=== PATIENT | male | born 1945 | race Caucasian/White ===

== ENCOUNTER 2018-11-25 15:46 | Inpatient (IN) ==
[2018-11-25] MEDS ORDERED: Morphine Sulfate Inj 2 MG/ML Vial IV.PUSH ONE (16:09)
--- NOTE | 2018-11-25 16:19 | ED ---
HPI General Chief complaint: Extremity Problem,Nontraumatic Stated complaint: hand swollen Time Seen by Provider: 11/25/18 16:05 Source: patient Mode of arrival: ambulatory Limitations: no limitations History of Present Illness HPI Narrative: Right second digit edema/erythema over the last couple days, works with his hands metal/wood Doxycycline with no resolution Complaint: Reports extremity pain and extremity swelling Onset (ago): day(s) Pain Consistency: constant Location: Reports right and upper extremity Quality: Reports aching and dull Radiation: Reports none Relieving factors: nothing Exacerbating factors: range of motion Associated symptoms: Reports denies other symptoms; Denies shortness of breath and fever Context: Denies recent surgery/procedure and history of peripheral vascular disease Related Data Home Medications Medication Instructions Recorded Confirmed allopurinol 100 mg PO BID 11/25/18 11/25/18 aspirin [Aspir-81] 81 mg PO DAILY 11/25/18 11/25/18 Allergies Allergy/AdvReac Type Severity Reaction Status Date / Time No Known Allergies Allergy Verified 11/25/18 16:09 Review of Systems ROS: all other systems reviewed are negative [facility] Medical History Medical History ACL tear (Acute) Gout (Acute) High cholesterol (Acute) Surgical History Surgical History Hx of cholecystectomy (Acute) Social History Social History Substance History: No History of Abuse Smoking Status: Never smoker How Often Do You Have a Drink Containing Alcohol: Never Recent Travel in [facility] within the Last 8 Weeks: No Recent Out of Country Travel within the Last 8 Weeks: No Exam Narrative Exam Narrative: NONTOXIC EOMI NO JVD NON LABORED RESPIRATIONS REGULAR RHYTHM, radial pulse equal [id number] Right second digit MCP to DIP erythema with moderate edema no crepitus Tender with extension Digit extended Nontender along tendon sheath Normal M/S r/u/m Nails intact without cuticle disruption Small punctate area second digit palm proximal to the DIP where there was a drainage by prior physician FACIAL SYMMETRY STEADY GAIT, CLEAR SENTENCES AAOX3 Course Reevaluation(s) Reevaluation #1: d/w hollis acosta will assess in ed 1700 hollis acosta hand ortho , seen pt requested mri hand and admit to hospitialist Thinks gout we will add colchicine 1745 d/w joshua acosta to admit/assume care No signs of tenosynovitis or gangrene Pending MRI Time: 16:46 Initial Documented Vital Signs Temperature 97.3 F L 11/25/18 15:50 Pulse Rate 80 11/25/18 15:50 Respiratory Rate 18 11/25/18 15:50 Blood Pressure 161/93 H 11/25/18 15:50 Pulse Oximetry 99 11/25/18 15:50 Last Documented Vital Signs Temperature 97.3 F L 11/25/18 15:50 Pulse Rate 63 11/25/18 17:45 Respiratory Rate 18 11/25/18 17:45 Blood Pressure 148/83 H 11/25/18 17:45 Pulse Oximetry 97 11/25/18 17:45 Medical Decision Making MDM Narrative Medical Screen Exam Complete: Yes Emergency Medical Condition: Yes Lab Data Result diagrams: 11/25/18 17:00 11/25/18 17:00 Lab Results 11/25/18 11/25/18 Range/Units 17:00 17:00 WBC 7.1 (4.0-11.0) th/mm3 RBC 4.85 (4.50-5.90) mil/mm3 Hgb 17.1 H (13.0-17.0) gm/dL Hct 48.1 (39.0-51.0) % MCV 99.1 (80.0-100.0) fL MCH 35.3 H (27.0-34.0) pg MCHC 35.6 (32.0-36.0) % RDW 12.6 (11.6-17.2) % Plt Count 188 (150-450) th/mm3 MPV 8.5 (7.0-11.0) fL Neut % (Auto) 59.5 (16.0-70.0) % Lymph % (Auto) 26.0 (9.0-44.0) % [place] % (Auto) 8.6 H (0.0-8.0) % Eos % (Auto) 5.2 H (0.0-4.0) % Baso % (Auto) 0.7 (0.0-2.0) % Neut # (Auto) 4.2 (1.8-7.7) th/mm3 Lymph # (Auto) 1.8 (1.0-4.8) th/mm3 [place] # (Auto) 0.6 (0.0-0.9) th/mm3 Eos # (Auto) 0.4 (0.0-0.4) th/mm3 Baso # (Auto) 0.1 (0.0-0.2) th/mm3 WBC Differential . Differential Comment Auto diff final PT 10.2 (9.8-11.6) sec INR 1.0 Ratio APTT 27.9 (23.4-31.7) sec Imaging Data Radiologist's impression: Hand X-Ray 11/25/18 16:09 CONCLUSION: 1. Osteoarthritic changes greatest involving the second distal interphalangeal joint with large osteophytes. 2. Soft tissue swelling over the second digit with benign small calcification. 3. No definite destructive change is identified. Discharge Plan Discharge Disposition Patient Disposition: Against Medical Advice Discharge Condition Condition: Stable Discharge Order Discharge Orders: ED Use Only Admit Order (Routine); Ordered 11/25/18 Ordered By: Kaleb Osorio Discharge Details Diagnosis: Cellulitis and abscess of unspecified digit Physicians Team ED Provider: Kaleb Osorio Primary Care Provider: UNKNOWN, Rxs /Orders / Referrals /Forms Prescriptions: No Action allopurinol 100 mg Tablet 100 mg PO BID RF: 0 aspirin [Aspir-81] 81 mg Tablet,Delayed Release (Dr/Ec) 81 mg PO DAILY RF: 0 Discharge Interventions Interventions: Vital Signs Last Done: 11/25/18 17:45 Status ED Status: Pending Admission
--- NOTE | 2018-11-25 16:44 | XR ---
EXAM DATE: 11/25/2018 4:40 PM EST AGE/SEX: 73 years / Male INDICATIONS: Pain, swelling and redness right hand, 2nd finger, with drainage spot anterior distal 2 nd finger. Denies injury CLINICAL DATA: This is the patient's initial encounter. Patient reports that signs and symptoms have been present for 4 - 6 days and indicates a pain score of 8/10. MEDICAL/SURGICAL HISTORY: Arthritis. None. COMPARISON: No prior exams available for comparison. FINDINGS: AP, lateral and oblique views of the hand were obtained and demonstrate normal mineralization and ali gnment. There are degenerative changes involving the distal interphalangeal joints with joint space l oss and mild hypertrophic change. This is greatest involving the second distal interphalangeal joint with large osteophyte formation. There is diffuse soft tissue swelling. There is a small calcificatio n measuring approximately 2 mm. There is no destructive change. Degenerative changes also noted in th e first metacarpal phalangeal joint with joint space loss and mild sclerosis. CONCLUSION: 1. Osteoarthritic changes greatest involving the second distal interphalangeal joint with large oste ophytes. 2. Soft tissue swelling over the second digit with benign small calcification. 3. No definite destructive change is identified. Electronically signed by: Vito Ivy MD Board Certified Radiologist 11/25/2018 4:42 PM EST
[2018-11-25] MEDS ORDERED: Vancomycin Inj 1,000 MG in Sodium Chlor 0.9% Inj 250 ML IV.SIG SCH (17:00)
[2018-11-25 17:21] LABS: Baso # (Auto) 0.1 th/mm3 (0.0-0.2); Baso % (Auto) 0.7 % (0.0-2.0); Eos # (Auto) 0.4 th/mm3 (0.0-0.4); Eos % (Auto) 5.2 % (0.0-4.0); Hematocrit 48.1 % (39.0-51.0); Hemoglobin 17.1 gm/dL (13.0-17.0); Lymph # (Auto) 1.8 th/mm3 (1.0-4.8); Mean Corpuscular HGB Conc 35.6 % (32.0-36.0); Mean Corpuscular Hemoglobin 35.3 pg (27.0-34.0); Mean Corpuscular Volume 99.1 fL (80.0-100.0); Mean Platelet Volume 8.5 fL (7.0-11.0); Mono # (Auto) 0.6 th/mm3 (0.0-0.9); Mono % (Auto) 8.6 % (0.0-8.0); Neut # (Auto) 4.2 th/mm3 (1.8-7.7); Neut % (Auto) 59.5 % (16.0-70.0); Platelet Count 188 th/mm3 (150-450); Red Blood Count 4.85 mil/mm3 (4.50-5.90); Red Cell Distribution Width 12.6 % (11.6-17.2); White Blood Count 7.1 th/mm3 (4.0-11.0)
[2018-11-25 17:26] LABS: Activated Partial Thrombo Time 27.9 sec (23.4-31.7); Prothrombin Time 10.2 sec (9.8-11.6)
[2018-11-25] MEDS ORDERED: Bisacodyl 10 MG Supp RECTAL PRN (17:51)
[2018-11-25] MEDS ORDERED: Temazepam 15 MG Capsule PO PRN (17:51)
[2018-11-25] MEDS ORDERED: Ketorolac Inj 30 MG/ML (IVP) Vial IV.PUSH PRN (17:51)
[2018-11-25] MEDS ORDERED: Acetaminophen 325 MG Tablet PO PRN (17:51)
--- NOTE | 2018-11-25 17:52 | MB ---
cc: Yasir Kay MD DATE: 11/25/2018 REASON FOR CONSULTATION: Right index finger pain and swelling, likely infection. HISTORY OF PRESENT ILLNESS: The patient is a 73-year-old right-hand dominant male, presenting to the ED with complaints of worsening pain, swelling, and redness involving the right index finger for the past couple of days. The patient states he noticed redness and swelling of the right index finger about a week ago. The patient was seen at urgent care, and he was put on p.o. antibiotics. The patient was seen again today for worsening symptoms, and he was referred to the ER for worsening symptoms. The patient complains of pain, swelling and redness. The patient also states he had a drainage of chalky white material from the region. The patient gives a history of gout. Denies any fever. Denies any numbness. The patient complains of pain with range of motion of the finger. Gives history of gouty attack in the great toe, not in the fingers in the past. PAST MEDICAL AND SURGICAL HISTORY: Reviewed and significant for gout. PHYSICAL EXAMINATION: Examination of the right hand/index finger reveals diffuse swelling of the index finger with erythema. There are 2 punctate areas in the volar aspect distal to the DIP joint crease with chalky white material in the region. Some swelling and erythema and also noted over the dorsal aspect of the DIP joint. Tenderness noted over the pulp region as well as dorsal aspect of the DIP and lateral aspect of the PIP joint. He has intact sensation distally. He has intact distal circulation. No fluctuant mass noted. Making a fist, terminal degrees of flexion and extension of the fingers are limited and painful. No tenderness noted in the palm corresponding to the flexor tendon sheath. He has intact capillary refill. LABORATORY DATA: His lab work is pending. X-rays of the right hand shows arthritis involving multiple DIP joints, worse involving the index finger. There is also evidence of soft tissue calcification on the soft tissues around the DIP joint of the index finger. ASSESSMENT: This is a 73-year-old male with right index finger pain and swelling with erythema. PLAN: My differential diagnosis is gout versus infection. 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 X-ray shows evidence of soft tissue calcification with arthritis. Plan will be to get an MRI scan of the right hand. We will treat the patient with IV antibiotics and anti-inflammatory medications. We will keep the patient n.p.o. for now. Hand surgery will follow. Yasir Kay MD SE/kylah , 05:09 PM , 05:20 PM
[2018-11-25 17:55] LABS: Calcium 8.7 mg/dL (8.5-10.1); Carbon Dioxide 26.9 meq/L (21.0-32.0)
[2018-11-25 17:56] LABS: Potassium 4.2 meq/L (3.5-5.1)
[2018-11-25] MEDS ORDERED: Heparin - SQ 10,000 UNITS/ML Vial SQ SCH (18:00)
--- NOTE | 2018-11-25 19:02 | P.HPIM ---
History of Present Illness Service: [facility] Primary Care Physician: UNKNOWN Chief Complaint: Right index finger infection History of Present Illness: 73-year-old male with a medical history significant for gout presented to the hospital with concern for right index finger infection. He has been swollen and erythematous for the past couple of weeks. It started to drain some white substance. He was seen at an urgent care and was put on oral antibiotics. However his symptoms continue to worsen. He denies fevers or chills. He does have some pain with movement of the finger. Patient was seen in the emergency room by surgery with concern for an infectious process versus gout. The patient will be admitted for IV antibiotics and further workup with MRI. Inpatient Certification Inpatient Certification: I certify that the inpatient services were ordered in accordance with Medicare regulations governing the order. This includes certification that hospital inpatient services are reasonable and necessary and in the case of services not specified as inpatient-only under 42 CFR 419.22(n), that they are appropriately provided as inpatient services in accordance to with the 2-midnight benchmark under 43 CFR 412.3(e) Estimated Total Length of Stay (Days): 3 Plans for Post Hospital Care: Home Review of Systems Review of Systems: all other systems reviewed are negative [facility] Medical History Medical History ACL tear (Acute) Gout (Acute) High cholesterol (Acute) Surgical History Surgical History Hx of cholecystectomy (Acute) Family History Family History Other Family history non-contributory Social History Social History Substance History: No History of Abuse Smoking Status: Never smoker How Often Do You Have a Drink Containing Alcohol: Never Recent Travel in [place] within the Last 8 Weeks: No Recent Out of Country Travel within the Last 8 Weeks: No Immunization History Tetanus Immunization: <5 Years Medications and Allergies Allergies Allergy/AdvReac Type Severity Reaction Status Date / Time No Known Allergies Allergy Verified 11/25/18 16:09 Home Medications Medication Instructions Recorded Confirmed Type allopurinol 100 mg PO BID 11/25/18 11/25/18 History aspirin [Aspir-81] 81 mg PO DAILY 11/25/18 11/25/18 History Active Medications: Active Medications Acetaminophen (Tylenol) 650 mg PO Q4H PRN PRN Reason: Temp > 100.4 Hydrocodone Bitart/Acetaminophen ([place] 7.5/325) 1 tab PO Q6H PRN PRN Reason: PAIN SCALE 6 TO 10 Al Hydroxide/Mg Hydroxide (Milk Of Magnesia Liq) 30 ml PO Q12H PRN PRN Reason: Mild Constipation Allopurinol (Zyloprim) 100 mg PO BID [facility] Aspirin (Ecotrin) 81 mg PO DAILY [facility] Bisacodyl (Dulcolax Supp) 10 mg RECTAL DAILY PRN PRN Reason: SEVERE CONSITIPATION Heparin Sodium (Porcine) (Heparin Inj) 5,000 units SQ Q12H [facility] Vancomycin HCl 1,000 mg/ (Sodium Chloride) 250 mls @ 250 mls/hr IV.SIG FRONT DESK COORDINATOR [facility] Last Admin: 11/25/18 16:50 Dose: 200 mls/hr Ketorolac Tromethamine (Toradol Inj) 15 mg IV.PUSH Q6H PRN PRN Reason: BREAKTHROUGH PAIN Stop: 11/30/18 17:50 Lactulose (Lactulose Liq) 30 ml PO DAILY PRN PRN Reason: SEVERE CONSITIPATION Ondansetron HCl (Zofran Inj) 4 mg IV.PUSH Q6H PRN PRN Reason: NAUSEA OR VOMITING Sennosides (Senokot) 17.2 mg PO Q12H PRN PRN Reason: Moderate Constipation Sodium Chloride (Ns Flush) 2 ml IV.FLUSH BID GELY Sodium Chloride (Ns Flush) 2 ml IV.FLUSH PRN PRN PRN Reason: FLUSH AFTER USING IV ACCESS Temazepam (Restoril) 15 mg PO HS PRN PRN Reason: INSOMNIA Physical Exam Vital signs: Vital Signs 11/25/18 15:50 11/25/18 17:45 11/25/18 17:46 Temperature 97.3 F L Pulse Rate 80 63 Respiratory Rate 18 18 18 Blood Pressure 161/93 H 148/83 H Pulse Oximetry 99 97 Intake & Output 11/25/18 11/25/18 11/26/18 06:59 18:59 06:59 Weight 89.811 kg Narrative: GENERAL: This is a well-nourished, well-developed patient, in no apparent distress. CARDIOVASCULAR: Normal rate and regular rhythm without murmurs, gallops, or rubs. RESPIRATORY: Good respiratory efforts. Breath sounds equal and clear to auscultation bilaterally. GASTROINTESTINAL: Abdomen soft, non-tender, non-distended. Normal active bowel sounds MUSCULOSKELETAL: Diffuse swelling and erythema of the right index finger. Limited range of motion secondary to pain. Sensation intact. Capillary refill ok NEURO: Alert & Oriented x4 to person, place, time, situation. Moves all ext x4 PSYCH: Appropriate mood and affect. Results Labs CBC & Chem 7: 11/25/18 17:00 11/25/18 17:00 Imaging Impressions Hand X-Ray 11/25/18 16:09 CONCLUSION: 1. Osteoarthritic changes greatest involving the second distal interphalangeal joint with large osteophytes. 2. Soft tissue swelling over the second digit with benign small calcification. 3. No definite destructive change is identified. Caprini VTE Risk Assessment Caprini VTE Risk Assessment: Moderate/High Risk (score >= 2) Caprini Risk Assessment Model: Point Value = 1 Point Value = 2 Point Value = 3 Point Value = 5 Age 41-60 Minor surgery BMI > 25 kg/m2 Swollen legs Varicose veins or History of unexplained or recurrent spontaneous Oral contraceptives or hormone replacement Sepsis (< 1 month) Serious lung disease, including pneumonia (< 1 month) Abnormal pulmonary function Acute myocardial infarction Congestive heart failure (< 1 month) History of inflammatory bowel disease Medical patient at bed rest Age 61-74 Arthroscopic surgery Major open surgery (> 45 min) Laparoscopic surgery (> 45 min) Malignancy Confined to bed (> 72 hours) Immobilizing plaster cast Central venous access Age >= 75 History of VTE Family history of VTE Factor V Leiden Prothrombin [id number] Lupus anticoagulant Anticardiolipin antibodies Elevated serum homocysteine Heparin-induced thrombocytopenia Other congenital or acquired thrombophilia Stroke (< 1 month) Elective arthroplasty Hip, pelvis, or leg fracture Acute spinal cord injury (< 1 month) Prophylaxis Regimen: Total Risk Factor Score Risk Level Prophylaxis Regimen 0-1 Low Early ambulation 2 Moderate Order ONE of the following: *Sequential Compression Device (SCD) *Heparin 5000 units SQ BID 3-4 Higher Order ONE of the following medications: *Heparin 5000 units SQ TID *Enoxaparin/Lovenox 40 mg SQ daily (WT < 150 kg, CrCl > 30 mL/min) *Enoxaparin/Lovenox 30 mg SQ daily (WT < 150 kg, CrCl > 10-29 mL/min) *Enoxaparin/Lovenox 30 mg SQ BID (WT < 150 kg, CrCl > 30 mL/min) AND/OR *Sequential Compression Device (SCD) 5 or more Highest Order ONE of the following medications: *Heparin 5000 units SQ TID (Preferred with Epidurals) *Enoxaparin/Lovenox 40 mg SQ daily (WT < 150 kg, CrCl > 30 mL/min) *Enoxaparin/Lovenox 30 mg SQ daily (WT < 150 kg, CrCl > 10-29 mL/min) *Enoxaparin/Lovenox 30 mg SQ BID (WT < 150 kg, CrCl > 30 mL/min) AND *Sequential Compression Device (SCD) Assessment and Plan Plan 73-year-old male with: Right index finger cellulitis versus gouty attack. Cannot rule out abscess. Failed outpatient treatment with antibiotics. - Continue IV antibiotics with Vancomycin. - Appreciate input from hand surgery. - MRI pending - Pain control with NSAID. [place] as needed. History of gout: - Patient received colchicine in the emergency room. - Continue allopurinol GI prophylaxis: PPI. Stool softener PRN constipation. DVT PPx: Heparin
[2018-11-25] MEDS ORDERED: Gadobutrol PF 10 MMOL/10 ML Vial (for RAD) IV.SIG ONE (19:08)
--- NOTE | 2018-11-25 19:31 | MR ---
EXAM DATE: 11/25/2018 7:21 PM EST AGE/SEX: 73 years / Male INDICATIONS: Osteomyelitis. Right hand, second digit pain and swelling for one week. CLINICAL DATA: This is the patient's initial encounter. Patient reports that signs and symptoms have been present for 1 week and indicates a pain score of 9/10. MEDICAL/SURGICAL HISTORY: Hypercholesterolemia. Cholecystectomy. Left thumb sx. COMPARISON: [facility], HAND COMPLETE RIGHT MIN 3V, 11/25/2018. . TECHNIQUE: Multiplanar, multisequence MRI examination was performed without contrast and after the i ntravenous administration of 9 ml Gadavist (gadobutrol) contrast as a single exam dose. FINDINGS: Marrow: There is subchondral cyst formation in the region of the second distal interphalangeal joint . Marrow signal is otherwise homogeneous. Metacarpal-Phalangeal Joints: The MCP joints are unremarkable with no evidence of erosion, effusion, or malalignment. Interphalangeal Joints: Degenerative osteoarthritis most notably of the first, second and third inte rphalangeal joints with osteophytes. No significant erosive change. Extensor Tendons: The visualized extensor tendons are intact. Flexor Tendons: The visualized flexor tendons are intact. Soft Tissues: Diffuse soft tissue edema and abnormal enhancement involving the second digit. Post Contrast: There are no definite abnormal areas of enhancement in the marrow, muscle or soft tis sues on images obtained after intravenous administration of gadolinium. CONCLUSION: 1. Diffuse soft tissue edema and enhancement involving the second digit consistent with cellulitis. 2. Degenerative osteoarthritis most notably of the first, second and third interphalangeal joints wi th subchondral cyst formation in the region of the second DIP. 3. No definitive abnormal enhancement or marrow signal abnormality to suggest osteomyelitis at this time. Electronically signed by: Buzz Lucero MD Board Certified Radiologist 11/25/2018 7:30 PM EST
[2018-11-25] MEDS ORDERED: Vancomycin Consult Pharmacy OTHER PRN (19:55)
[2018-11-25] MEDS: Heparin - SQ 10,000 UNITS/ML Vial SQ SCH (20:48)
[2018-11-25] MEDS: Ketorolac Inj 30 MG/ML (IVP) Vial IV.PUSH SCH (20:48)
[2018-11-25] MEDS: Allopurinol 100 MG Tablet PO SCH (20:55)
[2018-11-26] MEDS: Ketorolac Inj 30 MG/ML (IVP) Vial IV.PUSH SCH ×4 (02:38→20:32)
[2018-11-26] MEDS ORDERED: Vancomycin Inj 1,000 MG in Sodium Chlor 0.9% Inj 250 ML IV.SIG SCH (05:00)
[2018-11-26] MEDS: Heparin - SQ 10,000 UNITS/ML Vial SQ SCH ×2 (05:16→17:29)
[2018-11-26 05:56] LABS: Baso % (Auto) 0.4 % (0.0-2.0); Eos # (Auto) 0.5 th/mm3 (0.0-0.4); Hematocrit 47.9 % (39.0-51.0); Hemoglobin 16.7 gm/dL (13.0-17.0); Lymph # (Auto) 1.6 th/mm3 (1.0-4.8); Lymph % (Auto) 28.8 % (9.0-44.0); Mean Corpuscular HGB Conc 34.8 % (32.0-36.0); Mean Corpuscular Hemoglobin 34.6 pg (27.0-34.0); Mean Corpuscular Volume 99.6 fL (80.0-100.0); Mean Platelet Volume 8.7 fL (7.0-11.0); Mono # (Auto) 0.5 th/mm3 (0.0-0.9); Mono % (Auto) 9.2 % (0.0-8.0); Neut # (Auto) 2.8 th/mm3 (1.8-7.7); Neut % (Auto) 51.6 % (16.0-70.0); Platelet Count 177 th/mm3 (150-450); Red Blood Count 4.81 mil/mm3 (4.50-5.90); Red Cell Distribution Width 12.8 % (11.6-17.2); White Blood Count 5.4 th/mm3 (4.0-11.0)
[2018-11-26 06:23] LABS: Calcium 8.4 mg/dL (8.5-10.1); Carbon Dioxide 26.8 meq/L (21.0-32.0); Potassium 3.9 meq/L (3.5-5.1)
[2018-11-26] MEDS: Allopurinol 100 MG Tablet PO SCH ×2 (08:23→20:30)
[2018-11-26] MEDS: Vancomycin Inj 1,250 MG in Sodium Chlor 0.9% Inj 250 ML IV.SIG SCH (10:38)
--- NOTE | 2018-11-26 11:24 | P.PNIM ---
Subjective Interval history: Patient reports there has been no improvement in the right index finger swelling, erythema, and pain. There has been no fevers. Physical Exam Vital signs: Vital Signs 11/25/18 15:50 11/25/18 17:45 11/25/18 17:46 Temperature 97.3 F L Pulse Rate 80 63 Respiratory Rate 18 18 18 Blood Pressure 161/93 H 148/83 H Pulse Oximetry 99 97 11/25/18 19:30 11/25/18 23:15 11/26/18 03:15 Temperature 97.4 F L 97.2 F L 97.5 F L Pulse Rate 65 63 59 L Respiratory Rate 17 17 17 Blood Pressure 160/97 H 138/80 129/87 Pulse Oximetry 95 96 97 11/26/18 08:00 Temperature 97.7 F Pulse Rate 62 Respiratory Rate 18 Blood Pressure 157/99 H Pulse Oximetry 95 Intake & Output 11/25/18 11/26/18 11/26/18 18:59 06:59 18:59 Intake Total 250 / 250 0 / 0 Balance 250 / 250 0 / 0 Weight 89.811 kg 88.8 kg Intake: IV 250 / 250 Vancomycin Inj 1,000 MG In NS 250 / 250 Inj 250 ML @ 250 mls/hr IV.SIG [employer] SERVICE CONSULTANT [facility] Rx#:[id number] Oral 0 / 0 Other: # Bowel Movements 0 Narrative: GENERAL: This is a well-nourished, well-developed patient, in no apparent distress. CARDIOVASCULAR: Normal rate and regular rhythm without murmurs, gallops, or rubs. RESPIRATORY: Good respiratory efforts. Breath sounds equal and clear to auscultation bilaterally. GASTROINTESTINAL: Abdomen soft, non-tender, non-distended. Normal active bowel sounds MUSCULOSKELETAL: Diffuse swelling and erythema of the right index finger. Limited range of motion secondary to pain. Sensation intact. Capillary refill ok NEURO: Alert & Oriented x4 to person, place, time, situation. Moves all ext x4 PSYCH: Appropriate mood and affect. Results Labs CBC & Chem 7: 11/26/18 05:01 11/26/18 05:01 Imaging Imaging: Impressions Hand X-Ray 11/25/18 16:09 CONCLUSION: 1. Osteoarthritic changes greatest involving the second distal interphalangeal joint with large osteophytes. 2. Soft tissue swelling over the second digit with benign small calcification. 3. No definite destructive change is identified. Hand MRI 11/25/18 17:11 CONCLUSION: 1. Diffuse soft tissue edema and enhancement involving the second digit consistent with cellulitis. 2. 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 3. No definitive abnormal enhancement or marrow signal abnormality to suggest osteomyelitis at this time. Assessment and Plan Plan 73-year-old male with: Right index finger gout attack versus cellulitis. Failed outpatient treatment with antibiotics. - Continue IV antibiotics with Vancomycin. - Appreciate input from hand surgery. - MRI without significant fluid collection for drainage. Discussed with hand surgery. - Pain control with Toradol. [place] as needed. - Add colchicine History of gout: - Patient received colchicine in the emergency room. - Continue allopurinol -Add scheduled colchicine per discussion with hand surgery. GI prophylaxis: PPI. Stool softener PRN constipation. DVT PPx: Heparin
--- NOTE | 2018-11-26 17:20 | P.PN ---
Subjective Interval history: decreased pain and swelling patient states that he is able to make a better fist no fever no numbness Physical Exam Vital signs: Vital Signs 11/25/18 17:45 11/25/18 17:46 11/25/18 19:30 Temperature 97.4 F L Pulse Rate 63 65 Respiratory Rate 18 18 17 Blood Pressure 148/83 H 160/97 H Pulse Oximetry 97 95 11/25/18 23:15 11/26/18 03:15 11/26/18 08:00 Temperature 97.2 F L 97.5 F L 97.7 F Pulse Rate 63 59 L 62 Respiratory Rate 17 17 18 Blood Pressure 138/80 129/87 157/99 H Pulse Oximetry 96 97 95 11/26/18 12:00 Temperature 97.9 F Pulse Rate 72 Respiratory Rate 18 Blood Pressure 160/99 H Pulse Oximetry 97 Intake & Output 11/25/18 11/26/18 11/26/18 18:59 06:59 18:59 Intake Total 250 / 250 0 / 0 263 / 263 Balance 250 / 250 0 / 0 263 / 263 Weight 89.811 kg 88.8 kg Intake: IV 250 / 250 263 / 263 Vancomycin Inj 1,000 MG In NS 250 / 250 Inj 250 ML @ 250 mls/hr IV.SIG [employer] GELY Rx#:[id number] Vancomycin Inj 1,250 MG In NS 263 / 263 Inj 250 ML @ 250 mls/hr IV.SIG Q18H GELY Rx#:[id number] Oral 0 / 0 Other: # Bowel Movements 0 Narrative: right index finger: decreased swelling and erythema tenderness noted over the volar aspect of the DIP Joint and radial aspect of the PIP joint no tenderness over the flexor tendon sheath over the proximal or middle phalanx region able to make a better fist with finger to palm distance of about 1 cm intact distal sensation and circulation no fluctuation over the pulp region Hand MRI 11/25/18 17:11 CONCLUSION: 1. Diffuse soft tissue edema and enhancement involving the second digit consistent with cellulitis. 2. 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 3. No definitive abnormal enhancement or marrow signal abnormality to suggest osteomyelitis at this time. Results - Labs CBC & Chem 7: 11/26/18 05:01 11/26/18 05:01 Laboratory Results - last 24 hr 11/25/18 11/25/18 11/25/18 17:00 17:00 17:00 WBC 7.1 RBC 4.85 Hgb 17.1 H Hct 48.1 MCV 99.1 MCH 35.3 H MCHC 35.6 RDW 12.6 Plt Count 188 MPV 8.5 Neut % (Auto) 59.5 Lymph % (Auto) 26.0 Steele % (Auto) 8.6 H Eos % (Auto) 5.2 H Baso % (Auto) 0.7 Neut # (Auto) 4.2 Lymph # (Auto) 1.8 Steele # (Auto) 0.6 Eos # (Auto) 0.4 Baso # (Auto) 0.1 WBC Differential . Differential Comment Auto diff final PT 10.2 INR 1.0 APTT 27.9 Sodium 139 Potassium 4.2 Chloride 107 Carbon Dioxide 26.9 Anion Gap 5 BUN 14 Creatinine 1.04 Estimated GFR 70 L Random Glucose 79 Uric Acid Calcium 8.7 11/25/18 11/26/18 11/26/18 17:00 05:01 05:01 WBC 5.4 RBC 4.81 Hgb 16.7 Hct 47.9 MCV 99.6 MCH 34.6 H MCHC 34.8 RDW 12.8 Plt Count 177 MPV 8.7 Neut % (Auto) 51.6 Lymph % (Auto) 28.8 Steele % (Auto) 9.2 H Eos % (Auto) 10.0 H Baso % (Auto) 0.4 Neut # (Auto) 2.8 Lymph # (Auto) 1.6 Steele # (Auto) 0.5 Eos # (Auto) 0.5 H Baso # (Auto) 0.0 WBC Differential . Differential Comment Auto diff final PT INR APTT Sodium 142 Potassium 3.9 Chloride 109 H Carbon Dioxide 26.8 Anion Gap 6 BUN 14 Creatinine 0.96 Estimated GFR 77 L Random Glucose 86 Uric Acid 6.8 Calcium 8.4 L - Imaging Impressions Hand MRI 11/25/18 17:11 CONCLUSION: 1. Diffuse soft tissue edema and enhancement involving the second digit consistent with cellulitis. 2. 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 3. No definitive abnormal enhancement or marrow signal abnormality to suggest osteomyelitis at this time. Assessment and Plan - Assessment (1) Gout attack Code(s): M10.9 - Gout, unspecified Status: Acute - Plan Patient has improved clinically over the past one day able to make a better fist continue with antiinflammatory medications and antibiotics can plan for discharge if improving clinically tomorrow hand surgery will follow. (1) Gout attack Qualifiers: Gout site: hand Gout etiology: unspecified cause Laterality: right Qualified Code(s): M10.9 - Gout, unspecified
[2018-11-27] MEDS: Ketorolac Inj 30 MG/ML (IVP) Vial IV.PUSH SCH ×3 (04:15→13:24)
[2018-11-27] MEDS: Heparin - SQ 10,000 UNITS/ML Vial SQ SCH (05:14)
[2018-11-27] MEDS: Vancomycin Inj 1,250 MG in Sodium Chlor 0.9% Inj 250 ML IV.SIG SCH (05:14)
[2018-11-27] MEDS: Allopurinol 100 MG Tablet PO SCH (08:26)
[2018-11-27] MEDS ORDERED: MethylPREDNISolone Sod Succinate Inj 125 MG/2 ML Vial IV.PUSH ONE (13:40)
--- NOTE | 2018-11-27 14:51 | P.PNOP ---
Subjective Interval history: doing better and wants to go home Physical Exam Vital signs: Vital Signs 11/26/18 16:00 11/26/18 20:15 11/26/18 23:50 Temperature 97.6 F 97.9 F 98 F Pulse Rate 61 77 54 L Respiratory Rate 18 18 18 Blood Pressure 154/103 H 153/85 H 132/78 Pulse Oximetry 96 97 96 11/27/18 03:20 11/27/18 08:00 11/27/18 12:00 Temperature 97.6 F 96.8 F L 97.6 F Pulse Rate 77 63 76 Respiratory Rate 18 13 15 Blood Pressure 131/79 146/87 H 157/97 H Pulse Oximetry 96 95 96 Intake & Output 11/26/18 11/27/18 11/27/18 18:59 06:59 18:59 Intake Total 263 / 263 742.5 / 742.5 Output Total 400 / 400 Balance 263 / 263 342.5 / 342.5 Weight 86.7 kg Intake: IV 263 / 263 262.5 / 262.5 Vancomycin Inj 1,250 MG In NS 263 / 263 262.5 / 262.5 Inj 250 ML @ 250 mls/hr IV.SIG Q18H GELY Rx#:[id number] Oral 480 / 480 Output: Urine 400 / 400 Other: # Voids 4 # Bowel Movements 0 Weight On Admission 87.8 kg - Detailed Upper Extremity Exam Hand/Fingers: Right joint swelling (right index finger with moderate swelling but nearly full AROM of the MP and PIP joint and limited DIP joint motion, but no real tenderness; no warmth) Results - Labs CBC & Chem 7: 11/26/18 05:01 11/26/18 05:01 Assessment and Plan - Problem List (1) Gout attack Code(s): M10.9 - Gout, unspecified Status: Acute Qualifiers: Gout site: hand Gout etiology: unspecified cause Laterality: right Qualified Code(s): M10.9 - Gout, unspecified - Assessment and Plan discussed with patient and Dr. Kay and will write Rx for Keflex orally and patient on allopurinol chronically pt will call office on Thursday and see Dr. Villegas this week for recheck LI Gillespie RN as well
--- NOTE | 2018-11-27 18:27 | P.DS ---
DS: Providers Date of admission: 11/25/18 17:55 Primary care physician: UNKNOWN Brief History from admission: 73-year-old male with a medical history significant for gout presented to the hospital with concern for right index finger infection. He has been swollen and erythematous for the past couple of weeks. It started to drain some white substance. He was seen at an urgent care and was put on oral antibiotics. However his symptoms continue to worsen. He denies fevers or chills. He does have some pain with movement of the finger. Patient was seen in the emergency room by surgery with concern for an infectious process versus gout. The patient will be admitted for IV antibiotics and further workup with MRI. DS: Diagnosis Discharge Diagnosis (1) Gout attack: Status: Acute DS: Summary Patient was admitted for IV antibiotics hand surgery evaluation for possible incision and drainage. He was treated with empiric IV antibiotics and colchicine for possible gouty flare. He was seen by surgery and recommended ongoing conservative management patient had slow improvement of his symptoms, MRI of the hand show degenerative arthritis with no evidence to suggest osteomyelitis there was soft tissue edema consistent with cellulitis., Symptoms and swelling and erythema improved to just distal to the PIP, and cultures remain negative to date, there is no open draining wound, patient reports that outpatient Gram stain and culture of a pustule on the tip of the finger was negative without growth to date, patient was then given a dose of IV Solu-Medrol for acute gout exacerbation, he was cleared from surgical standpoint to discharge home for outpatient follow-up, he was also recommended to complete a course of Keflex. He was discharged in stable condition for outpatient follow-up Time Spent with Patient Total time spent providing and/or coordinating discharge services: Exam Narrative Exam Narrative: Well-developed well-nourished pleasant 73-year-old gentleman Awake alert oriented no acute distress Heart S1-S2 regular Lungs clear no wheeze no rhonchi Abdomen soft nondistended positive bowel sounds Extremities left hand index finger tip significant ecchymosis and edema reportedly much improved from admission and he is able to flex his digit a little Results Impressions ITS Impressions Hand X-Ray 11/25/18 16:09 CONCLUSION: 1. Osteoarthritic changes greatest involving the second distal interphalangeal joint with large osteophytes. 2. Soft tissue swelling over the second digit with benign small calcification. 3. No definite destructive change is identified. Hand MRI 11/25/18 17:11 CONCLUSION: 1. Diffuse soft tissue edema and enhancement involving the second digit consistent with cellulitis. 2. 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 3. No definitive abnormal enhancement or marrow signal abnormality to suggest osteomyelitis at this time. Discharge Plan Discharge Disposition Patient Disposition: 01 Discharge Home Discharge Condition Condition: Stable Discharge Order Discharge Orders: Discharge Order (Routine); Ordered 11/27/18 Ordered By: Blanche Calzada Discharge Details Discharge Comment: if juancarlos w hand surgery Physicians Team ED Provider: Kaleb Osorio Primary Care Provider: UNKNOWN, Attending Provider: Blanche Calzada Rxs /Orders / Referrals /Forms Prescriptions: New hydrocodone-acetaminophen 7.5-325 mg Tablet 1 tab PO Q6H PRN (Reason: Pain Scale 6 To 10) Qty: 9 RF: 0 colchicine [Colcrys] 0.6 mg Tablet 0.6 mg PO BID Qty: 30 RF: 0 cephalexin 500 mg Capsule 500 mg PO QID 7 Days Qty: 28 RF: 0 Continue allopurinol 100 mg Tablet 100 mg PO BID RF: 0 aspirin [Aspir-81] 81 mg Tablet,Delayed Release (Dr/Ec) 81 mg PO DAILY RF: 0 Referrals: Yasir Kay MD [Physician] - See Instructions ( Please call the physician's office on Thursday to be seen this coming week) UNKNOWN, [Primary Care Provider] - See Instructions Discharge Instructions Patient Printed Instructions: Hydrocodone/Acetaminophen (By mouth), Colchicine (By mouth), Cellulitis (GEN), Gout (GEN) Status ED Status: Left Department Discharge Information Discharge Date/Time: 11/27/18 16:11
[2018-11-28] MEDS ORDERED: Pharmacy Ordered Lab Info OTHER ONE (16:45)
== END 2018-11-27 16:11 | disposition home or self-care (01) | DRG 603 ==
LOC: NEPC 15:46 → NEDA 17:55 → N04 19:39
PROVIDERS: ADMIT Internal Medicine; ATTEND Internal Medicine
CPT/HCPCS: 73130; 73220; 80048; 84550; 85025; 85610; 85730; 90765; 90775; 96365; 96375; 99285; A9585; J1644; J1885; J2270; J2405; J2930; J3370; J7050